=== PATIENT | female | born 1975 | race Caucasian/White ===

== ENCOUNTER 2017-11-30 23:43 | Emergency (ER) | payer BC ==
[~2017-11-30] VITALS: Ht 167.6 cm; Wt 77.3 kg
[2017-11-30 23:46] VITALS: BP 125/92; PULSE 103; RESP 20; TEMP 97.5; O2SAT 99
[2017-12-01 00:02] VITALS: BP 130/81; PULSE 95; RESP 16; O2SAT 99
[2017-12-01] MEDS ORDERED: SODIUM CHLORIDE 0.9% FLUSH 10 ML FLUSH IV FLUSH PRN (00:15)
[2017-12-01] MEDS ORDERED: FAMOTIDINE 20 MG/2 ML VIAL IV PUSH ONE (00:15)
[2017-12-01] MEDS ORDERED: methylPREDNISolone SOD SUCC 125 MG/2 ML VIAL IV PUSH ONE (00:15)
[2017-12-01] MEDS ORDERED: diphenhydrAMINE HCL 50 MG/ML VIAL IVP ONE (00:15)
--- NOTE | 2017-12-01 01:10 | PD ---
HPI Chief Complaint: Bite or Sting Time Seen by Provider: 00:02 Travel History International Travel<30 days: No Contact w/Intl Traveler<30days: No Traveled to known affect area: No History of Present Illness HPI 42-year-old female states she was stung on the forehead by a wasp about 5 hours ago. She states the swelling has progressed despite Benadryl and so she came in. She states she has had a bad reaction to wasp before but it is usually on her hand or somewhere else and has never been on her face. She denies any difficulty breathing, wheezing, difficulty swallowing or any other concurrent complaints. Quality is swollen. Location is upper face. She denies specific modifying factors. PFSH Past Medical History Hypertension: Yes Tetanus Vaccination: > 5 Years Influenza Vaccination: No ?: Not LMP: "3 WEEKS AGO" : 1 Past Surgical History Tonsillectomy: Yes Social History Alcohol Use: Yes Tobacco Use: Yes Substance Use: No Allergies-Medications (Allergen,Severity, Reaction): Coded Allergies: No Known Allergies (Unverified , 11/30/17) Review of Systems Except as stated in HPI: all other systems reviewed are Neg Physical Exam Narrative GENERAL: 42-year-old female in no apparent distress SKIN: Patient with swelling to center of her forehead that spreads with associated significant bilateral periorbital edema HEAD: Atraumatic. Normocephalic. EYES: Pupils equal and round. No scleral icterus. No injection or drainage. ENT: No nasal bleeding or discharge. Mucous membranes pink and moist. No uvula swelling NECK: Trachea midline. No JVD. CARDIOVASCULAR: Regular rate and rhythm. RESPIRATORY: No accessory muscle use. Clear to auscultation. Breath sounds equal bilaterally. GASTROINTESTINAL: Abdomen soft, non-tender, nondistended. MUSCULOSKELETAL: No obvious deformities. No clubbing. No cyanosis. No edema. NEUROLOGICAL: Awake and alert. No obvious cranial nerve deficits. Motor grossly within normal limits. Normal speech. PSYCHIATRIC: Appropriate mood and affect; insight and judgment normal. Data Data Last Documented VS Vital Signs Date Time Temp Pulse Resp B/P (MAP) Pulse Ox O2 Delivery O2 Flow Rate FiO2 12/01/17 01:40 86 16 138/84 (102) 98 Room Air 11/30/17 23:46 97.5 Orders Orders Ecg Monitoring (12/01/17 00:04) Iv Access Insert/Monitor (12/01/17 00:04) Oximetry (12/01/17 00:04) Diphenhydramine Inj (Benadryl Inj) (12/01/17 00:15) Methylprednisolone So Succ Inj (Solumedr (12/01/17 00:15) Famotidine Inj (Pepcid Inj) (12/01/17 00:15) Sodium Chloride 0.9% Flush (Ns Flush) (12/01/17 00:15) MDM Medical Decision Making Medical Screen Exam Complete: Yes Emergency Medical Condition: Yes Medical Record Reviewed: Yes (pmh confirmed) Differential Diagnosis Insect bite, allergic reaction, cellulitis Narrative Course Patient with localized swelling to forehead and periorbital area. No wheezing or uvula edema. Vitals stable. Will dose with Solu-Medrol, Benadryl, Pepcid and reevaluate swelling as improved, patient denies any new complaints and states that they are feeling better. Patient happy with care, all questions answered. Patient knows that follow up is incumbent on them and to return to the emergency room immediately if new or worsening symptoms develop. Patient given strict return precautions, vitals reviewed and are normal, agrees to further workup as an outpatient. Diagnosis Primary Impression: Allergic reaction Qualified Codes: T78.40XA - Allergy, unspecified, initial encounter Patient Instructions: General Instructions Additional Instructions: return as needed, follow with primary this week, benadryl at home as needed Med/Other Pt SpecificInfo: Prescription(s) given Scripts Prednisone (Prednisone) 50 Mg Tab 50 MG PO DAILY for 5 Days, #5 TAB 0 Refills Prov: Anamika Dickerson MD 12/01/17 Disposition: 01 DISCHARGE HOME Condition: Stable Anamika Dickerson MD Dec 01, 2017 01:10
[2017-12-01 01:40] VITALS: BP 138/84; PULSE 86; RESP 16; O2SAT 98
[2017-12-01] MEDS ORDERED: PRED50 PO (02:00)
== END 2017-12-01 02:16 | disposition home or self-care (01) ==
LOC: NEPE 23:43
DX: T78.40XA Allergy, unspecified, initial encounter (principal)
CPT/HCPCS: 96374; 96375; 99284; J1200; J2930